=== PATIENT | male | born 1990 | race Caucasian/White ===

== ENCOUNTER 2017-05-13 01:52 | Emergency (ER) | payer MEDICAID, OTHER ==
--- NOTE | 2017-05-13 02:15 | ED Physician Documentation ---
History of Present Illness - Stated complaint Stated Complaint: BACK PAIN - Chief complaint Chief Complaint: Back Pain - History obtained from History obtained from: Patient (pt is here for evaluation of left sided back pain. does not radiate. no trauma, states that he has had back pain the past but not like this. No fevers, no problems with urination or bowel movements. no rashes.) Review of Systems Constitutional: denies: Fever, Chills Cardiac: denies: Chest pain / pressure, Palpitations Respiratory: denies: Cough GI: denies: Abdominal Pain, Nausea, Vomiting, Constipation, Diarrhea, Bloody / black stool : denies: Dysuria, Frequency, Hesitancy, Unable to Void Skin: denies: Rash, Lesions Musculoskeletal: reports: Back pain, Pain with weight bearing. denies: Extremity pain, Joint pain, Joint swelling Neurologic: denies: Focal weakness, Numbness, Headache PD PAST MEDICAL HISTORY - Present Medications Home Medications: Ambulatory Orders Medication Instructions Recorded Confirmed HYDROcod/ACETAM 5/325 [[place] 5/325] 1 each PO Q6H PRN #7 tablet 05/13/17 - Allergies Allergies/Adverse Reactions: Allergies Allergy/AdvReac Type Severity Reaction Status Date / Time No Known Drug Allergies Allergy Verified 05/13/17 02:02 Results - Vitals Vitals: Vital Signs - 24 hr 05/13/17 01:58 Temperature 36.2 C L Heart Rate 103 H Respiratory 18 Rate Blood Pressure 146/97 H O2 Saturation 96 Oxygen O2 Source Room air PD MEDICAL DECISION MAKING - ED course Complexity details: re-evaluated patient, considered differential, d/w patient ED course: pt with left sided back pain however a normal exam. does not have risk factors for CA, fracture, mets or other surgical pathology. Will hold on radiologic studies for now. Pt given IM meds in the ER. we discussed his symptoms and expected course of treatment. he was given return precautions. Departure - Departure Disposition: 01 Home, Self Care Clinical Impression: Back pain Condition: Good Instructions: ED Low Back Pain Injury, IBUPROFEN (Adult), ANTI-INFLAMMATORY, General Follow-Up: Dominga Sandoval ARNP [Primary Care Provider] - Prescriptions: HYDROcod/ACETAM 5/325 [[place] 5/325] 1 each PO Q6H PRN #7 tablet PRN Reason: Pain Comments: Recommend that you call your primary care provider for a follow up in the next week. Recommend that you stay as active a possible and do light stretching. You pain will improve but may take days or a week or so to get better. Return to the ER for any new or worsening symptoms. Forms: Activity restrictions
[2017-05-13] MEDS ORDERED: HYDROmorphone 1 MG/ML SYRINGE IM STA (02:44)
[2017-05-13] MEDS ORDERED: KETOROLAC 30 MG/ML VIAL IM STA (02:44)
[2017-05-13 03:41] VITALS: BP 150/80
== END 2017-05-13 03:41 | disposition home or self-care (01) ==
LOC: ED 01:52
DX: M54.5 Low back pain (principal)
CPT/HCPCS: 96372; 99283; J1170

== ENCOUNTER 2021-06-12 20:08 | Emergency (ER) | payer MEDICAID, OTHER ==
[2021-06-12 20:46] LABS: BASOPHILS % (AUTO) 0.4 %; EOSINOPHILS # (AUTO) 0.1 10^3/uL (0.0-0.7); HCT - HEMATOCRIT 41.1 % (42.0-52.0); LYMPHOCYTES # (AUTO) 2.1 10^3/uL (1.5-3.5); LYMPHOCYTES % (AUTO) 29.6 %; MEAN CORPUSCULAR HEMOGLOBIN 28.9 pg (27.0-31.0); MEAN CORPUSCULAR HGB CONC 34.1 g/dL (32.0-36.0); MEAN CORPUSCULAR VOLUME 84.7 fL (80.0-94.0); MEAN PLATELET VOLUME 9.4 fL (7.4-11.4); MONOCYTES # (AUTO) 0.5 10^3/uL (0.0-1.0); MONOCYTES % (AUTO) 7.3 %; NEUTROPHILS # (AUTO) 4.3 10^3/uL (1.5-6.6); NEUTROPHILS % (AUTO) 60.4 %; PLT - PLATELET COUNT 294 10^3/uL (130-450); RED BLOOD COUNT 4.85 10^6/uL (4.70-6.10); WHITE BLOOD COUNT 7.2 x10^3/uL (4.8-10.8)
--- NOTE | 2021-06-12 20:51 | ED Physician Documentation ---
PD HPI ABD PAIN - Stated complaint Stated Complaint: BACK PX/NAUSEA - Chief complaint Chief Complaint: Abd Pain - History obtained from History obtained from: Patient - Additional information Additional information: The patient comes to the emergency department with chief complaint of right flank pain for the last 2 to 3 days. He states that the pain fluctuates in intensity, and it radiates into his inguinal areas sometimes, but denies any testicular or penile pain. No dysuria or gross hematuria. The patient has a history of kidney stones previously and states this feels similar. No fevers or chills. He states he has been nauseated and a waxing and waning fashion, mainly related to pain. No other complaints at this time. Review of Systems Ten Systems: 10 systems reviewed and negative Constitutional: reports: Reviewed and negative Eyes: reports: Reviewed and negative Ears: reports: Reviewed and negative Nose: reports: Reviewed and negative Throat: reports: Reviewed and negative Cardiac: reports: Reviewed and negative Respiratory: reports: Reviewed and negative GI: reports: Abdominal Pain, Nausea, Vomiting : reports: Reviewed and negative. denies: Dysuria, Frequency, Hematuria Skin: reports: Reviewed and negative Musculoskeletal: reports: Reviewed and negative Neurologic: reports: Reviewed and negative Psychiatric: reports: Reviewed and negative Endocrine: reports: Reviewed and negative Immunocompromised: reports: Reviewed and negative PD PAST MEDICAL HISTORY - Past Surgical History Past Surgical History: No - Present Medications Home Medications: Ambulatory Orders Medication Instructions Recorded Confirmed HYDROcod/ACETAM 5/325 [[place] 5/325] 1 - 2 tablet PO Q6H PRN #14 tablet 06/12/21 Ondansetron Odt [Zofran] 4 mg TL Q6H PRN #14 tablet 06/12/21 Tamsulosin [Flomax] 1 cap PO DAILY #7 cap 06/12/21 - Allergies Allergies/Adverse Reactions: Allergies Allergy/AdvReac Type Severity Reaction Status Date / Time No Known Drug Allergies Allergy Verified 06/12/21 20:22 - Social History Does the pt smoke?: No Smoking Status: Never smoker Does the pt drink ETOH?: No Does the pt have substance abuse?: No - Immunizations Immunizations are current?: Yes PD ED PE NORMAL - Vitals Vital signs reviewed: Yes - General General: Alert and oriented X 3, No acute distress, Well developed/nourished, Other (The patient intermittently appears to be in pain but though uncomfortable does not appear in distress.) - HEENT HEENT: Atraumatic, PERRL, EOMI, Moist mucous membranes - Neck Neck: Supple, no meningeal sign - Cardiac Cardiac: RRR, No murmur, Strong equal pulses - Respiratory Respiratory: No respiratory distress, Clear bilaterally - Abdomen Abdomen: Soft, Non tender, Non distended - Back Back: Other (Right CVA tenderness) - Derm Derm: Normal color, Warm and dry, No rash, Other (Multiple lipomas) - Extremities Extremities: No deformity, No edema, No calf tenderness / cord - Neuro Neuro: Alert and oriented X 3, home health travel ot 2-12 intact, Normal speech, Other (Grossly intact) - Psych Psych: Normal mood, Normal affect Results - Vitals Vitals: Vital Signs - 24 hr 06/12/21 06/12/21 06/12/21 20:19 20:22 20:47 Temperature 36.2 C L Heart Rate 103 H 83 Respiratory 28 H 25 H 24 Rate Blood Pressure 148/99 H 157/97 H O2 Saturation 97 98 06/12/21 23:16 Temperature Heart Rate 92 Respiratory 18 Rate Blood Pressure 138/85 H O2 Saturation 97 Oxygen O2 Source Room air - Labs Labs: Laboratory Tests 06/12/21 06/12/21 06/12/21 20:40 20:40 21:48 WBC 7.2 RBC 4.85 Hgb 14.0 Hct 41.1 L MCV 84.7 MCH 28.9 MCHC 34.1 RDW 13.0 Plt Count 294 MPV 9.4 Neut # (Auto) 4.3 Lymph # (Auto) 2.1 [place] # (Auto) 0.5 Eos # (Auto) 0.1 Baso # (Auto) 0.0 Absolute Nucleated RBC 0.00 Nucleated RBC % 0.0 Sodium 139 Potassium 3.8 Chloride 104 Carbon Dioxide 25 Anion Gap 10.0 BUN 13 Creatinine 1.1 Estimated GFR (MDRD) 78 L Glucose 123 H Calcium 8.8 Total Bilirubin 0.6 AST 29 ALT 44 Alkaline Phosphatase 68 Total Protein 7.5 Albumin 4.2 Globulin 3.3 Albumin/Globulin Ratio 1.3 Lipase 27 Urine Color YELLOW Urine Clarity CLEAR Urine pH 6.0 Ur Specific [place] >=1.030 H Urine Protein NEGATIVE Urine Glucose (UA) NEGATIVE Urine Ketones NEGATIVE Urine Occult Blood LARGE H Urine Nitrite NEGATIVE Urine Bilirubin NEGATIVE Urine Urobilinogen 1 (NORMAL) Ur Leukocyte Esterase NEGATIVE Urine RBC 11-25 H Urine WBC 0-3 Ur Squamous Epith Cells NONE SEEN Urine Crystals 6-10 Calcium Oxalate Urine Bacteria Rare Ur Microscopic Review INDICATED Urine Culture Comments NOT INDICATED - Rads (name of study) CT abd/pelvis Radiology: Final report received, EMP read indepedently, See rad report (4 mm right ureteral stone.) PD MEDICAL DECISION MAKING - ED course Complexity details: reviewed results, re-evaluated patient, considered differential, d/w patient ED course: The patient was worked up with labs, urinalysis, and CT scan of the abdomen and pelvis without contrast. In the meantime, he was given a liter of 0.9 normal saline, as well as Toradol, Dilaudid, and Zofran. CT scan did show a 4 mm stone in the proximal ureter on the right. I discussed the findings with the patient, who was found to be feeling much better. The patient's urinalysis is not infected, and I have advised the patient to drink plenty of fluids and take the Flomax to help the stone pass faster. I have also prescribed the patient Zofran and hydrocodone for symptomatic relief. Given the stone's size, I suspect it will pass on its own without difficulty. We have discussed home management of the symptoms, indications for urology follow up, and the usual indications for return. Departure - Departure Disposition: 01 Home, Self Care Clinical Impression: Kidney stone on right side Condition: Stable Instructions: ED Stone Renal W Colic Prescriptions: Tamsulosin [Flomax] 1 cap PO DAILY #7 cap HYDROcod/ACETAM 5/325 [[place] 5/325] 1 - 2 tablet PO Q6H PRN #14 tablet PRN Reason: Pain Ondansetron Odt [Zofran] 4 mg TL Q6H PRN #14 tablet PRN Reason: Nausea / Vomiting Comments: You have a stone that is passing through your right ureter, the tube that drains the urine from your kidney into the bladder. The stone is still fairly high up, but is 4 mm, which is a generally very passable size. You can help this along by drinking plenty of water and taking the tamsulosin, or "Flomax" that has been prescribed. You have also been prescribed a medication for pain and 1 for nausea. If you do not notice any improvement in the next week, please make an appointment with urology to be reevaluated. Your prescriptions have been electronically transmitted to [facility]. Forms: Activity restrictions Discharge Date/Time: 06/12/21 23:16
[2021-06-12] MEDS: HYDROmorphone 1 MG/ML CARPUJECT IVP STA (20:56)
[2021-06-12] MEDS: SODIUM CHLORIDE 0.9% 1,000 ML IV STA (20:56)
[2021-06-12] MEDS: ONDANSETRON 4 MG/2 ML VIAL IVP STA (20:56)
[2021-06-12] MEDS: KETOROLAC 30 MG/ML VIAL IVP STA (20:56)
[2021-06-12 21:00] LABS: ALBUMIN 4.2 g/dL (3.2-5.5); ALBUMIN/GLOBULIN RATIO 1.3 (1.0-2.2); BILIRUBIN,TOTAL 0.6 mg/dL (0.2-1.0); CALCIUM 8.8 mg/dL (8.5-10.3); CREATININE 1.1 mg/dL (0.6-1.2); POTASSIUM 3.8 mmol/L (3.5-5.0); TOTAL PROTEIN 7.5 g/dL (6.7-8.2)
--- NOTE | 2021-06-12 21:52 | CT Report ---
PROCEDURE: Abdomen/Pelvis WO INDICATIONS: R flank pain/nausea, h/o kidney stones TECHNIQUE: Noncontrast 5 mm thick sections acquired from the diaphragms to the symphysis. 5 mm coronal and sagi ttal reformats were then performed. For radiation dose reduction, the following was used: automated exposure control, adjustment of mA and/or kV according to patient size. COMPARISON: None. FINDINGS: Image quality: Excellent. ABDOMEN: Lung bases: Lung bases are clear. Heart size is normal. Solid organs: Liver and spleen are normal in size. Gallbladder is decompressed but otherwise unrema rkable Pancreas is normal in contours. No adrenal nodules. Left kidney is normal in size without hy dronephrosis or nephrolithiasis. Left ureter is normal in course and caliber. There is a 2 mm punctat e right nephrolith. There is a 4 mm proximal right ureteral stone with minimal right hydroureter prox imally. There is also adjacent periureteral stranding. No significant right-sided hydronephrosis. No right perinephric stranding. Remainder of the right ureter is normal in course and caliber. Peritoneum and bowel: Normal appendix. There is mild circumferential colonic wall prominence seconda ry to fatty hypertrophy of the submucosal layer. This likely represents sequela of chronic/recurrent inflammatory processes. Recommend correlation for history of inflammatory bowel disease. No acute inf lammatory changes identified. Visualized small bowel and stomach are unremarkable in appearance. No e vidence for obstruction. No free fluid or air. Nodes and vessels: No retroperitoneal or mesenteric adenopathy by size criteria. Aorta and inferior vena cava are normal in caliber. Miscellaneous: No ventral hernias. PELVIS: Genitourinary: Bladder wall thickness is normal. No urinary bladder stone. Miscellaneous: No inguinal hernias or adenopathy. Bones: No suspicious bony lesions. No acute vertebral body compression fractures. IMPRESSION: 1. There is a 4 mm proximal right ureteral stone with associated mild hydroureter and periureteral st randing. No hydronephrosis seen. 2. A 2 mm punctate right nephrolith is also visualized. 3. Normal appendix. 4. Findings compatible with sequela of chronic/recurrent inflammatory colitis with mild fatty hypertr ophy of the submucosal layer of the colonic wall. No evidence for acute colitis. Recommend clinical c orrelation. Reviewed by: Alexi Peters MD on 06/12/2021 9:51 PM PST Approved by: Alexi Peters MD on 06/12/2021 9:51 PM PST Station ID: [id number]
[2021-06-12 21:56] LABS: GLUCOSE, URINE (UA) NEGATIVE (NEGATIVE); KETONES,URINE (UA) NEGATIVE (NEGATIVE); LEUKOCYTE ESTERASE, URINE NEGATIVE (NEGATIVE); NITRITE,URINE NEGATIVE (NEGATIVE); OCCULT BLOOD,URINE LARGE (NEGATIVE); PROTEIN,URINE NEGATIVE (NEGATIVE); UROBILINOGEN,URINE 1 (NORMAL) E.U./dL (NORMAL)
[2021-06-12 22:03] LABS: BILIRUBIN,URINE NEGATIVE (NEGATIVE); CLARITY,URINE CLEAR (CLEAR); ICTOTEST,URINE NEGATIVE
[2021-06-12 22:10] LABS: WBC,URINE 0-3 /HPF (0-3)
[2021-06-12 22:11] LABS: BACTERIA,URINE Rare /HPF (None Seen); CRYSTALS,URINE 6-10 Calcium Oxalate /LPF; SQUAMOUS EPITHELIAL CELL,UR NONE SEEN (<= Few)
[2021-06-12] MEDS: ONDANSETRON ODT 4 MG Prepack 2 TL PRN (22:49)
[2021-06-12] MEDS: HYDROcod/ACET 5/325 Prepack 4 PO STA (23:14)
[2021-06-12 23:17] VITALS: BP 138/85
--- NOTE | 2021-06-14 16:47 | ED Physician Documentation ---
ED Addendum - Addendum Addendum: 06/14/21 16:47 Took call from patient, reportedly he went to [facility] and they would not fill his prescription but also refused to transfer it to a different pharmacy. I canceled the prescriptions previously and sent the duplicates to [facility] per his request.
== END 2021-06-12 23:16 | disposition home or self-care (01) ==
LOC: ED 20:08
DX: N20.0 Calculus of kidney (principal)
CPT/HCPCS: 36415; 74176; 80053; 81001; 83690; 85025; 96374; 99283; 99284; J1170; 81003; 87086